=== PATIENT | female | born 1975 | race Caucasian/White ===

== ENCOUNTER → 2018-07-08 16:51 | Outpatient (CLI) | payer OTHER, SELFPAY ==
[2018-07-11 13:29] LABS: HPV Reflexed? NOT INDICATED
== END ==
PROVIDERS: Visit Provider Obstetrics & Gynecology
DX: Z12.4 Encounter for screening for malignant neoplasm of cervix (principal)
CPT/HCPCS: 88175; G0145

== ENCOUNTER → 2018-08-21 10:18 | Outpatient (CLI) | payer OTHER, SELFPAY ==
--- NOTE | 2018-08-21 10:20 | BI_ITS ---
MAMMOGRAPHY - BILATERAL SCREENING REASON FOR EXAM: Female, 42 years old. Routine annual screening examination. PERTINENT HISTORY: Non-contributory. TECHNIQUE: Digital bilateral breast rudy (3D mammographic acquisition) in the CC and MLO projections. 2-D mediolateral oblique (MLO) and craniocaudad (CC) views of both breasts were obtained. CAD: Full Field Digital Mammography with Computer Added Detection was performed. COMPARISON: Comparison is made with prior examination dated August 13, 2017. FINDINGS: Breast Composition: There are scattered areas of fibroglandular density. There are no dominant masses or suspicious calcifications. Stable benign-appearing bilateral axillary lymph nodes. No other significant abnormalities are identified. There has been no significant change since the prior study. BI/SCREENING MAMM (CAD), BILAT IMPRESSION: Stable bilateral screening mammogram. Yearly follow-up mammogram recommended. (A) ASSESSMENT CATEGORY: BIRADS Category 2: Benign. A letter regarding these results will be sent to the patient by the facility within 30 days. Approximately 10% of breast cancers are not detected by mammography. A normal mammogram should not delay biopsy of a clinically suspicious abnormality. [id number] Electronically Signed: Fadi Moise MD at 12:30 EST Tel [phone], Service support ,
--- OUTSIDE RECORDS SUMMARY | 2018-10-16 18:40 | XMS RPT_ITS ---
:1975 Author Organization [facility] Care Team Providers Name Role Phone Zac Thao Attending Unavailable Zac Thao Attending Unavailable Hong Ureña Primary Care Unavailable PROBLEMS PROBLEMS DATE TYPE CONDITION / CODE ATTENDING STATUS SOURCE 07/11/2018 Unknown Z12.4 - Zac Thao Active [employer] Encounter for Community screening for Hospital malignant Repository neoplasm of cervix / Z12.4(ICD-10) PROCEDURES PROCEDURES No Procedure Records FoundRESULTS RESULTS SCREENING MAMM (CAD), Observed: 08/21/2018 Status: F Source: [place] BILAT 10:20 AM [facility] H[facility]PITAL REPOSITORY [facility] Imaging Services [address] [place] [address] SCREENING MAMM (CAD), BILAT MR#: [id number] Acct: [id number] Name: TRUDY MULLIGAN Rep #: [id number] : 1975 F 42 From: Fadi Moise MD PCP: Hong Ureña MD Status: REG CLI Study: SCREENING MAMM (CAD), BILAT Date of Exam: 08/21/18 Exam# [id number] Ordering Dr: Zac Thao MD MAMMOGRAPHY - BILATERAL SCREENING REASON FOR EXAM: Female, 42 years old. Routine annual screening examination. PERTINENT HISTORY: Non-contributory. TECHNIQUE: Digital bilateral breast rudy (3D mammographic acquisition) in the CC and MLO projections. 2-D mediolateral oblique (MLO) and craniocaudad (CC) views of both breasts were obtained. CAD: Full Field Digital Mammography with Computer Added Detection was performed. COMPARISON: Comparison is made with prior examination dated August 13, 2017. FINDINGS: Breast Composition: There are scattered areas of fibroglandular density. There are no dominant masses or suspicious calcifications. Stable benign-appearing bilateral axillary lymph nodes. No other significant abnormalities are identified. There has been no significant change since the prior study. BI/SCREENING MAMM (CAD), BILAT IMPRESSION: Stable bilateral screening mammogram. Yearly follow-up mammogram recommended. (A) ASSESSMENT CATEGORY: BIRADS Category 2: Benign. A letter regarding these results will be sent to the patient by the facility within 30 days. Approximately 10% of breast cancers are not detected by mammography. A normal mammogram should not delay biopsy of a clinically suspicious abnormality. [id number] Electronically Signed: Fadi Moise MD at 12:30 EST Tel [phone], Service support , CC: Zac Thao MD; Hong Ureña MD Health And Nutrition Specialist: Signed PAP IG W/REFLEX HR Collected: 07/08/2018 Status: F Source: [place] HPV APTIMA 3:00 PM [facility] REPOSITORY Order Comment: CYTOLOGY INFORMATION: - CLINICAL INFORMATION: - DATE LMP/MENOPAUSE: 06/18/18 LMP - COLLECTION VIAL: Thin Prep Vial - RN PACU SOURCE: CERVICAL/ENDOCERVICAL - COLLECTION TECHNIQUE: BRUSH/SPATULA Specimen Comment: [id number] Specimen Comment: Source.............Cervix;Endocervix Specimen Comment: LMP / Prev Treat...[id number]=[id number] Specimen Comment: No. of containers..01 ThinPrep Vial TYPE CODE TESTS RESULT OUT OF RANGE REFERENCE UNITS LAB L7400.0800 . Normal DIAGN Comment Result Comment: NEGATIVE FOR INTRAEPITHELIAL LESION AND MALIGNANCY. LAB L7400.0900 . Normal ADEQ Comment Result Comment: Satisfactory for evaluation. Endocervical and/or squamous metaplastic cells (endocervical component) are present. LAB L7400.1400 . Normal PERFORM Comment Result Comment: Felicia Rg, Cnc Router Operator (ASCP) LAB L7400.2575 . Normal TEST METHOD Comment Result Comment: This liquid based ThinPrep(R) pap test was screened with the use of an image guided system. LAB L7400.2600 . Normal . COMM LAB L7400.2700 . Normal PAPSMR Comment Result Comment: The Pap smear is a screening test designed to aid in the detection of premalignant and malignant conditions of the uterine cervix. It is not a diagnostic procedure and should not be used as the sole means of detecting cervical cancer. Both false-positive and false-negative reports do occur. LAB L7400.2800 . Normal HPV RFLX Comment Result Comment: The HPV DNA reflex criteria were not met with this specimen result therefore, no HPV testing was performed. Performed at: - [facility] [id number] Plaster Applicator: Julisa Birch MD, Phone: [phone] Performed By: #### L7400.0357 #### [facility] (refer to report for specific site) refer to report for address and phone number PROGRESS Observed: 07/08/2018 Status: COMPLETED Source: [place] 1:[address] [facility] REPOSITORY O ID: [id number] Author: Renetta Churchill Service: (none) Author Type: Nurse Practitioner Type: Progress Notes Filed: 07/08/2018 1:38 PM Note Text: Subjective HPI Pt presents with c/o itchy rash to bilateral arms, trunk and neck x 2 weeks after exposure to poison russ viri while 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 Has been taking benadryl and using calamine lotion with minimal improvement. Has also tried poison russ spray. Denies fever, chills, myalgias. Review of Systems Constitutional: Negative for chills and fever. Skin: Positive for itching and rash. Objective Physical Exam Constitutional: She is oriented to person, place, and time and well-developed, well-nourished, and in no distress. No distress. Neurological: She is alert and oriented to person, place, and time. Skin: Skin is warm and dry. Rash noted. Rash is maculopapular and vesicular. She is not diaphoretic. Vesicular and maculopapular lesions in patches to bilateral forearms and scattered to areas noted. No drainage to any lesions. No signs of secondary infection noted. BP 128/84 Pulse (!) 122 Temp 37.1 ?C (98.7 ?F) (Tympanic) Resp 18 Wt 88.9 kg (196 lb) BMI 31.16 kg/m? .Patient presents with: poison russ: x 2 weeks PAST MEDICAL HISTORY Diagnosis Date - Psoriasis of scalp Dr. Hernandez PAST SURGICAL HISTORY Procedure Laterality Date - NONE ALLERGIES Patient has no known allergies. MEDICATIONS predniSONE (DELTASONE) 10 mg tablet Take 4 tabs daily for 3 days, then 2 tabs daily for 3 days, then 1 tab daily for 3 days with food. triamcinolone acetonide (KENALOG) 0.1 % ointment Apply 1 application to affected area twice daily for 7 days. FAMILY HISTORY Problem Relation Age of Onset - Psoriasis Father - other (IBS [Other]) Mother - Cancer Maternal Aunt brain cancer Social History Substance Use Topics - Smoking status: Never Smoker - Smokeless tobacco: Never Used - Alcohol use 1.5 oz/week 1 Glasses of Wine (5oz) per week ASSESSMENT/PLAN: 1. Contact dermatitis due to plants, except food, unspecified contact dermatitis type - ICD9: 692.6, ICD10: L25.5 - discussed skin care of rash - follow up if symptoms persist or worsen. - PREDNISONE 10 MG TABLET - TRIAMCINOLONE ACETONIDE 0.1 % TOPICAL OINTMENT The patient is instructed to return or seek emergency treatment if symptoms become worse or with any acute change in condition. The patient verbalizes understanding and is in agreement with plan of care. Renetta Churchill CNP CNOV Observed: 07/08/2018 Status: COMPLETED Source: [place] 1:15 PM [facility] REPOSITORY Office Visit (WSTR) TRUDY MULLIGAN ([id number]) 1975 F Date Time Provider Department 07/08/18 1:15 PM RENETTA CHURCHILL [facility] During your visit today, we recorded the following information about you: Temperature Pulse Respiration Blood pressure 98.7 degrees 122/minute 18/minute 128/84 Weight 88.9 kg Renetta Churchill APRN.PERFORMANCE ANALYST 07/08/2018 1:38 PM Signed Subjective HPI Pt presents with c/o itchy rash to bilateral arms, trunk and neck x 2 weeks after exposure to poison russ viri while 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 Has been taking benadryl and using calamine lotion with minimal improvement. Has also tried poison russ spray. Denies fever, chills, myalgias. Review of Systems Constitutional: Negative for chills and fever. Skin: Positive for itching and rash. Objective Physical Exam Constitutional: She is oriented to person, place, and time and well-developed, well-nourished, and in no distress. No distress. Neurological: She is alert and oriented to person, place, and time. Skin: Skin is warm and dry. Rash noted. Rash is maculopapular and vesicular. She is not diaphoretic. Vesicular and maculopapular lesions in patches to bilateral forearms and scattered to areas noted. No drainage to any lesions. No signs of secondary infection noted. BP 128/84 Pulse (!) 122 Temp 37.1 ?C (98.7 ?F) (Tympanic) Resp 18 Wt 88.9 kg (196 lb) BMI 31.16 kg/m? .Patient presents with: poison russ: x 2 weeks PAST MEDICAL HISTORY Diagnosis Date - Psoriasis of scalp Dr. Hernandez PAST SURGICAL HISTORY Procedure Laterality Date - NONE ALLERGIES Patient has no known allergies. MEDICATIONS predniSONE (DELTASONE) 10 mg tablet Take 4 tabs daily for 3 days, then 2 tabs daily for 3 days, then 1 tab daily for 3 days with food. triamcinolone acetonide (KENALOG) 0.1 % ointment Apply 1 application to affected area twice daily for 7 days. FAMILY HISTORY Problem Relation Age of Onset - Psoriasis Father - other (IBS [Other]) Mother - Cancer Maternal Aunt brain cancer Social History Substance Use Topics - Smoking status: Never Smoker - Smokeless tobacco: Never Used - Alcohol use 1.5 oz/week 1 Glasses of Wine (5oz) per week ASSESSMENT/PLAN: 1. Contact dermatitis due to plants, except food, unspecified contact dermatitis type - ICD9: 692.6, ICD10: L25.5 - discussed skin care of rash - follow up if symptoms persist or worsen. - PREDNISONE 10 MG TABLET - TRIAMCINOLONE ACETONIDE 0.1 % TOPICAL OINTMENT The patient is instructed to return or seek emergency treatment if symptoms become worse or with any acute change in condition. The patient verbalizes understanding and is in agreement with plan of care. Renetta Churchill CNP Referring Provider: SELF [200] Allergies As of Date: 07/08/2018 (No Known Allergies) Date Reviewed: 07/08/2018 Reviewed by: Pamella Jain LPN - Fully Assessed Reason for Visit: poison russ [Other] Cmt: x 2 weeks Primary Visit Diagnosis:Contact dermatitis due to plants, except food, unspecified contact dermatitis type [L25.5] Order(s):predniSONE (DELTASONE) 10 mg tabletTake 4 tabs daily for 3 days, then 2 tabs daily for 3 days, then 1 tab daily for 3 days with food.Disp: 21 tabletRfl: 0 triamcinolone acetonide (KENALOG) 0.1 % ointmentApply 1 application to affected area twice daily for 7 days.Disp: 80 gRfl: 0 Prescriptions as of 07/08/2018 Sig: PREDNISONE 10 MG TABLET Take 4 tabs daily for 3 days,* TRIAMCINOLONE ACETONIDE 0.1 %* Apply 1 application to affect* Problem List As Of Date 07/08/2018 Noted Resolved Psoriasis of scalp [L40.9] INVALID FOR* Prescriptions ordered this encounter Disp Refills Start End PREDNISONE 10 MG TABLET 21 t* 0 07/08/2018 07/17/2018 Sig: Take 4 tabs daily for 3 days, then 2 tabs daily for 3 days, then 1 tab daily for 3 days with food. TRIAMCINOLONE ACETONIDE 0.1 % TOPICA* 80 g 0 07/08/2018 07/15/2018 Route: TOPICAL Sig: Apply 1 application to affected area twice daily for 7 days. Encounter Status:Closed by RENETTA CHURCHILL CNP on 07/08/18 ALLERGIES ALLERGIES DATE TYPE / CODE NAME / CODE REACTION SEVERITY SOURCE 06/24/2015 Drug No Known Unknown [employer] [facility] Allergy/416 Allergies/I71614 Hospital 951532(SNOM 0388(RXNORM) Repository ED CT) Drug NO KNOWN [facility] Class/27138 ALLERGIES [place] 1003(SNOMED Repository CT) ENCOUNTERS ENCOUNTERS ADMIT/DISCHARGE ACCOUNT ADMITTING ENCOUNTER LOCATION SOURCE NUMBER CLASS 08/21/2018 [id number] [facility] ing:OPBI Repository 07/08/2018 [id number] [facility] ing:LABSPEC Repository 07/08/2018/07/10/20 [id number] Ambulatory [address] Repository PAYERS PAYERS ENCOUNTER GUARANTOR PAYER SUBSCRIBER SOURCE 08/21/[address] Primary TRUDY A [employer] [id number] WILE Insurance:AETNAPolicy TERRELLDOB: [place], [place] Number: [id number] Hospital [address]Wdd: 330 [id number] Repository [phone] () Date:[id number] [facility] [place] [address]BM: 08/21/2018 Secondary NOT GIVENUNK [employer] Insurance:SELF PAY [facility] Number: Effective Repository Date:2018-07-09 07/08/[address] Primary TRUDY A [employer] [id number] WILE Insurance:AETNAPolicy TERRELLDOB: [place], [place] Number: [id number] Hospital [address]Tvh: 330 [id number] Repository [phone] () Date:[id number] [address], [place] [address]OU: 07/08/2018 Secondary NOT GIVENUNK [employer] Insurance:SELF PAY [facility] Number: Effective Repository Date:2018-07-08
== END ==
PROVIDERS: Family Provider Internal Medicine; PCP Internal Medicine; Visit Provider Obstetrics & Gynecology
DX: Z12.31 Encounter for screening mammogram for malignant neoplasm of breast (principal)
CPT/HCPCS: 77063; 77067

== ENCOUNTER → 2019-06-25 13:10 | Outpatient (REF) | payer OTHER, SELFPAY ==
[2019-06-28 06:07] LABS: HEPATITIS B SURFACE AG Negative (Negative); Hepatitis A AB, Total Negative (Negative); Hepatitis A IgM Antibody Negative (Negative); Hepatitis B Core AB IgM Negative (Negative); Hepatitis B Core Ab Total Negative (Negative); Hepatitis C Ab <0.1 s/co ratio (0.0-0.9); QNTFERON TB Mitogen Value > 10.00 IU/mL (.); QNTFERON TB Nil Value 0.02 IU/mL (.); QNTFERON TB1+ Ag Value 0.03 IU/mL (.); QNTFERON TB2+ Ag Value 0.04 IU/mL (.)
[2019-06-30 13:55] LABS: Hep B Surface Antibodies Reactive (.)
[2019-06-30 13:56] LABS: QNTIFERON TB Positive Criteria Negative (Negative)
== END ==
LOC: OLS.WCEH 13:10
DX: R69 Illness, unspecified (principal)
CPT/HCPCS: 86480; 86704; 86705; 86706; 86708; 86709; 86803; 87340

== ENCOUNTER → 2019-08-26 10:19 | Outpatient (CLI) | payer OTHER, SELFPAY ==
--- NOTE | 2019-08-26 10:21 | BI_ITS ---
MAMMOGRAPHY - BILATERAL SCREENING REASON FOR EXAM: Female, 43 years old. Routine annual screening examination. PERTINENT HISTORY: Non-contributory. TECHNIQUE: Digital bilateral breast kristen (3D mammographic acquisition) in the CC and MLO projections. 2-D mediolateral oblique (MLO) and craniocaudad (CC) views of both breasts were obtained. CAD: Full Field Digital Mammography with Computer Added Detection was performed. COMPARISON: Comparison is made with prior study dated August 21, 2018 and August 13, 2017. FINDINGS: Breast Composition: There are scattered areas of fibroglandular density. There are no dominant masses or suspicious calcifications. Stable small benign-appearing bilateral axillary lymph nodes. No other significant abnormalities are identified. There has been no significant change since the prior study. BI/SCREEN MAMM (CAD) W/KRISTEN BILAT IMPRESSION: Stable bilateral screening mammogram. Yearly follow-up mammogram recommended. (A) ASSESSMENT CATEGORY: BIRADS Category 2: Benign. A letter regarding these results will be sent to the patient by the facility within 30 days. Approximately 10% of breast cancers are not detected by mammography. A normal mammogram should not delay biopsy of a clinically suspicious abnormality. [id number] Electronically Signed: Fadi Moise, at 11:25 EST , Service support ,
== END ==
PROVIDERS: Family Provider Internal Medicine; PCP Internal Medicine; Referring Provider Obstetrics & Gynecology; Visit Provider Obstetrics & Gynecology
DX: Z12.31 Encounter for screening mammogram for malignant neoplasm of breast (principal)
CPT/HCPCS: 77063; 77067

== ENCOUNTER → 2019-12-01 14:08 | Outpatient (CLI) | payer OTHER, SELFPAY ==
[2019-12-01 15:43] LABS: Absolute Lymphocyte Count 1.59 X10^3/uL (0.83-4.51); Absolute Neutrophil Count 4.4 X10^3/uL (2.0-7.7); Basophil# 0.02 X10^3/uL; Basophil% 0.3 % (0-1); Eosinophil# 0.05 X10^3/uL; Eosinophils% 0.8 % (0-5); Hematocrit 39.5 % (37-47); Hemoglobin 12.6 g/dL (12.0-15.0); Lymphocyte # 1.59 X10^3/ul (4.0); Lymphocyte % 25.2 % (19-41); Mean Corp Hgb Conc 31.9 g/dL (32-36); Mean Platelet Vol. 10.6 fl (6.2-12.0); Monocyte# 0.27 X10^3/uL; Monocyte% 4.3 % (0-10); NRBC Flagged by Analyzer 0 % (0-5); Neutrophil # 4.35 X10^3/uL (2.7-7.7); Neutrophil % 69.1 % (47-70); Platelet Count 247 K/mm3 (150-450); RBC Distribution Width CV 12.5 % (11.6-14.6); RBC Distribution Width SD 41.9 fl (35.1-43.9); Red Blood Count 4.34 M/mm3 (4.2-5.4); White Blood Count 6.3 K/mm3 (4.4-11.0)
[2019-12-01 16:19] LABS: Erythrocyte Sedimentation Rate 7 mm/hr (0-20)
[2019-12-01 16:22] LABS: ALB/GLOB Ratio 1.1 RATIO (0.9-2.4); AST(SGOT) 13 U/L (15-37); Alanine Aminotransfer ALT/SGPT 22 U/L (13-56); Alkaline Phosphatase 49 U/L (45-117); Anion Gap 6 (5-15); BUN 7 mg/dL (7-18); BUN/Creat Ratio 7.2 RATIO (10-20); CRP < 2.90 mg/L (0.0-3.0); Calcium,Total 8.8 mg/dL (8.5-10.1); Chloride 107 mmol/L (98-107); Creatinine, Serum 0.97 mg/dL (0.55-1.02); EST Glomerular Filtration Rate 67 mL/min (>60); Est Glom Filt Rate - Afr Amer 81 mL/min (>60); Globulin 3.5 g/dL (2.2-4.2); Glucose 88 mg/dL (74-106); Potassium 3.7 mmol/L (3.5-5.1); Protein, Total 7.5 g/dL (6.4-8.2); Rheumatoid Factor < 10.0 IU/mL (<15); Sodium Level 141 mmol/L (136-145)
[2019-12-03 17:05] LABS: ANTINUCLEAR ANTIBODIES DIRECT Negative (Negative)
[2019-12-05 11:52] LABS: CCP IgG Antibodies 83 units (0-19)
== END ==
PROVIDERS: PCP Internal Medicine; Referring Provider Internal Medicine Rheumatology; Visit Provider Internal Medicine Rheumatology
DX: L40.59 Other psoriatic arthropathy (principal); M18.0 Bilateral primary osteoarthritis of first carpometacarpal joints; Q66.70 Congenital pes cavus, unspecified foot; L40.8 Other psoriasis
CPT/HCPCS: 36415; 80053; 85025; 85652; 86038; 86140; 86200; 86431

== ENCOUNTER → 2020-05-19 09:44 | Outpatient (CLI) | payer OTHER, SELFPAY ==
[2020-05-22 08:08] LABS: QNTFERON TB Mitogen Value > 10.00 IU/mL (.); QNTFERON TB Nil Value 0.02 IU/mL (.); QNTFERON TB1+ Ag Value 0.03 IU/mL (.); QNTFERON TB2+ Ag Value 0.03 IU/mL (.)
[2020-05-22 14:38] LABS: QNTIFERON TB Positive Criteria Negative (Negative)
== END ==
PROVIDERS: PCP Internal Medicine; Referring Provider Physician Assistant Medical; Visit Provider Physician Assistant Medical
DX: L40.0 Psoriasis vulgaris (principal); Z79.899 Other long term (current) drug therapy; L40.59 Other psoriatic arthropathy
CPT/HCPCS: 36415; 86480

== ENCOUNTER → 2020-07-22 | Outpatient (CLI) | payer OTHER, SELFPAY ==
[2020-07-27 14:43] LABS: HPV Reflexed? NOT INDICATED
== END | disposition home or self-care (01) ==
LOC: LABSPEC 13:02
PROVIDERS: PCP Internal Medicine; Visit Provider Obstetrics & Gynecology
DX: Z12.4 Encounter for screening for malignant neoplasm of cervix (principal)
CPT/HCPCS: 88175; G0145

== ENCOUNTER → 2020-08-30 10:33 | Outpatient (CLI) | payer OTHER, SELFPAY ==
--- NOTE | 2020-08-30 10:35 | BI_ITS ---
MAMMOGRAPHY - BILATERAL SCREENING REASON FOR EXAM: Female, 44 years old. Routine annual screening examination. PERTINENT HISTORY: Non-contributory. TECHNIQUE: Digital bilateral breast kristen (3D mammographic acquisition) in the CC and MLO projections. 2-D mediolateral oblique (MLO) and craniocaudad (CC) views of both breasts were obtained. CAD: Full Field Digital Mammography with Computer Added Detection was performed. COMPARISON: Comparison is made with prior study dated 08/26/2019 and 08/21/2018. FINDINGS: Breast Composition: There are scattered areas of fibroglandular density. There are no dominant masses or suspicious calcifications. Stable benign-appearing bilateral axillary lymph nodes. No other significant abnormalities are identified. There has been no significant change since the prior study. BI/SCREEN MAMM (CAD) W/KRISTEN BILAT IMPRESSION: Stable bilateral screening mammogram. Yearly follow-up mammogram recommended. (A) ASSESSMENT CATEGORY: BIRADS Category 2: Benign. A letter regarding these results will be sent to the patient by the facility within 30 days. Approximately 10% of breast cancers are not detected by mammography. A normal mammogram should not delay biopsy of a clinically suspicious abnormality. [id number] Electronically Signed: Fadi Moise, at 11:37 EST , Service support ,
== END ==
PROVIDERS: PCP Internal Medicine; Referring Provider Obstetrics & Gynecology; Visit Provider Obstetrics & Gynecology
DX: Z12.31 Encounter for screening mammogram for malignant neoplasm of breast (principal)
CPT/HCPCS: 77063; 77067

== ENCOUNTER → 2021-05-10 09:30 | Outpatient (CLI) | payer OTHER, SELFPAY ==
[2021-05-17 04:08] LABS: QNTFERON TB Mitogen Value > 10.00 IU/mL (.); QNTFERON TB Nil Value 0.03 IU/mL (.); QNTFERON TB1+ Ag Value 0.04 IU/mL (.); QNTFERON TB2+ Ag Value 0.03 IU/mL (.)
[2021-05-17 08:06] LABS: QNTIFERON TB Positive Criteria Negative (Negative)
== END ==
PROVIDERS: PCP Internal Medicine; Referring Provider Physician Assistant Medical; Visit Provider Physician Assistant Medical
DX: L40.0 Psoriasis vulgaris (principal); Z79.899 Other long term (current) drug therapy; L40.59 Other psoriatic arthropathy; B07.8 Other viral warts
CPT/HCPCS: 36415; 86480

== ENCOUNTER → 2021-09-08 13:48 | Outpatient (CLI) | payer OTHER, SELFPAY ==
--- NOTE | 2021-09-08 13:49 | BI_ITS ---
MAMMOGRAPHY - BILATERAL SCREENING REASON FOR EXAM: Female, 46 years old. Routine annual screening examination. PERTINENT HISTORY: Non-contributory. TECHNIQUE: Digital bilateral breast kristen (3D mammographic acquisition) in the CC and MLO projections. 2-D mediolateral oblique (MLO) and craniocaudad (CC) views of both breasts were obtained. CAD: Full Field Digital Mammography with Computer Added Detection was performed. COMPARISON: Comparison is made with prior study of 08/30/2020 and 08/26/2019. FINDINGS: Breast Composition: There are scattered areas of fibroglandular density. There are no dominant masses or suspicious calcifications. Stable benign-appearing bilateral axillary lymph nodes. No other significant abnormalities are identified. There has been no significant change since the prior study. BI/SCRN MAMM (CAD)W/KRISTEN BILAT IMPRESSION: Stable bilateral screening mammogram. Yearly follow-up mammogram recommended. (A) ASSESSMENT CATEGORY: BIRADS Category 2: Benign. A letter regarding these results will be sent to the patient by the facility within 30 days. Approximately 10% of breast cancers are not detected by mammography. A normal mammogram should not delay biopsy of a clinically suspicious abnormality. [id number] Electronically Signed: Fadi Moise MD at 15:15 EST , Service support ,
== END ==
PROVIDERS: PCP Internal Medicine; Referring Provider Obstetrics & Gynecology; Visit Provider Obstetrics & Gynecology
DX: Z12.31 Encounter for screening mammogram for malignant neoplasm of breast (principal)
CPT/HCPCS: 77063; 77067

== ENCOUNTER → 2022-05-05 | Outpatient (CLI) | payer OTHER, SELFPAY ==
[2022-05-10 10:09] LABS: QNTFERON TB Mitogen Value > 10.00 IU/mL (.); QNTFERON TB Nil Value 0.11 IU/mL (.); QNTFERON TB1+ Ag Value 0.04 IU/mL (.); QNTFERON TB2+ Ag Value 0.04 IU/mL (.)
[2022-05-10 12:04] LABS: Hepatitis B Core Ab Total Negative (Negative); QNTIFERON TB Positive Criteria Negative (Negative)
== END | disposition home or self-care (01) ==
LOC: MTLAB 10:42
PROVIDERS: PCP Internal Medicine; Referring Provider Physician Assistant Medical; Visit Provider Physician Assistant Medical
DX: L40.0 Psoriasis vulgaris (principal); Z79.899 Other long term (current) drug therapy; B07.8 Other viral warts; L65.0 Telogen effluvium
CPT/HCPCS: 36415; 86480; 86704

== ENCOUNTER → 2022-09-29 | Outpatient (CLI) | payer OTHER, SELFPAY ==
[2022-10-03 16:18] LABS: HPV APTIMA, High Risk Negative (Negative)
== END | disposition home or self-care (01) ==
LOC: LABSPEC 10:56
PROVIDERS: PCP Internal Medicine; Visit Provider Obstetrics & Gynecology
DX: Z12.4 Encounter for screening for malignant neoplasm of cervix (principal)
CPT/HCPCS: 87624; 88175; G0145

== ENCOUNTER → 2022-10-25 | Outpatient (CLI) | payer OTHER, SELFPAY ==
--- NOTE | 2022-10-25 08:29 | BI_ITS ---
MAMMOGRAPHY - BILATERAL SCREENING REASON FOR EXAM: Female, 47 years old. Routine annual screening examination. PERTINENT HISTORY: Non-contributory. TECHNIQUE: Digital bilateral breast krsiten (3D mammographic acquisition) in the CC and MLO projections. 2-D mediolateral oblique (MLO) and craniocaudad (CC) views of both breasts were obtained. CAD: Full Field Digital Mammography with Computer Added Detection was performed. COMPARISON: Comparison is made with prior study dated 09/08/2021 and 08/30/2020. FINDINGS: Breast Composition: There are scattered areas of fibroglandular density. There is a 6.9 mm x 6.5 mm well-defined nodule in the upper lateral portion of the right breast. Correlation with ultrasound is recommended. Stable benign-appearing bilateral axillary lymph nodes. No other significant abnormalities are identified. BI/SCRN MAMM (CAD)W/KRISTEN BILAT IMPRESSION: 6.9 mm x 6.5 mm well-defined nodule in the upper lateral portion of the right breast as described. Correlation with ultrasound is recommended. ASSESSMENT CATEGORY: BIRADS Category 0: Incomplete. Need additional imaging evaluation. A letter regarding these results will be sent to the patient by the facility within 30 days. Approximately 10% of breast cancers are not detected by mammography. A normal mammogram should not delay biopsy of a clinically suspicious abnormality. [id number] Electronically Signed: Fadi Moise MD at 9:51 EST ,
== END | disposition home or self-care (01) ==
LOC: OPBI 08:27
PROVIDERS: PCP Internal Medicine; Referring Provider Obstetrics & Gynecology; Visit Provider Obstetrics & Gynecology
DX: Z12.31 Encounter for screening mammogram for malignant neoplasm of breast (principal); N63.10 Unspecified lump in the right breast, unspecified quadrant
CPT/HCPCS: 77063; 77067

== ENCOUNTER → 2022-10-26 | Outpatient (CLI) | payer OTHER, SELFPAY ==
--- NOTE | 2022-10-26 11:01 | US_ITS ---
STUDY: ULTRASOUND BREAST - RIGHT REASON FOR EXAM: Female, 47 years old. Abnormal screening mammogram. TECHNIQUE: Axial and longitudinal images of the RIGHT breast were performed with a high resolution ultrasound transducer. # OF IMAGES: 19 COMPARISON: Comparison is made with prior mammogram dated 10/25/2022. FINDINGS: RIGHT Breast: The mammographic abnormality corresponds to a 5 mm x 6 mm x 2 mm cyst at the 10 o''clock position of the breast at 2 cm from the nipple. US/Breast Limited Unilateral IMPRESSION: The mammographic abnormality corresponds to a 5 mm x 6 mm x 2 mm cyst at the 10 o''clock position of the breast at 2 cm from the nipple. ASSESSMENT CATEGORY: BIRADS Category 2: Benign. A letter regarding these results will be sent to the patient by the facility within 30 days. Electronically Signed: Fadi Moise MD at 12:26 EST ,
== END | disposition home or self-care (01) ==
PROVIDERS: PCP Internal Medicine; Referring Provider Obstetrics & Gynecology; Visit Provider Obstetrics & Gynecology
DX: R92.8 Other abnormal and inconclusive findings on diagnostic imaging of breast (principal)
CPT/HCPCS: 76642

== ENCOUNTER 2022-11-13 07:49 | Day surgery (SDC) | payer OTHER, SELFPAY ==
[2022-11-07 11:10] LABS: Hematocrit 34.9 % (37-47); Hemoglobin 11.1 g/dL (12.0-15.0); Mean Corp Hgb Conc 31.8 g/dL (32-36); Mean Corpuscular Volume 87.9 fL (81-99); Mean Platelet Vol. 10.1 fl (6.2-12.0); Platelet Count 248 K/mm3 (150-450); RBC Distribution Width CV 14.2 % (11.6-14.6); RBC Distribution Width SD 45.2 fl (35.1-43.9); Red Blood Count 3.97 M/mm3 (4.2-5.4)
[2022-11-13] VITALS (9 sets, daily range): BP systolic 104–150; BP diastolic 89–105; PULSE 61–98; RESP 16; TEMP 36.2–36.7; O2SAT 94–100; BMI 32.8
[2022-11-13 08:21] LABS: Internal QC Validated? YES +Cl - CLEAR BKGD; Pregnancy, Urine Negative Negative
[2022-11-13] MEDS: Lactated Ringers 1,000 ML 15 ML IV (08:26)
--- NOTE | 2022-11-13 09:25 | OV_PTH ---
PATIENT: TRUDY MULLIGAN LOC: [facility] U#:[id number] AGE/SX: 47/F ROOM: RE11/13/[address]: Dr. Woodrow Bowling MD : 1975 BED: DIS: 11/13/2022 SPEC #: [id number] RECD: 11/13/22 11:24 STATUS: MAIKOL MARQUITAMinerva #: [id number] DIONISIO: 11/13/22 09:[address]: Woodrow Bowling DEPT: SURGICAL PATHOLOGY RECD BY: Willa Moore ENTERED: 11/13/22 11:56 SP TYPE: OVARY OTHR DR: Dr. Hong Ureña MD Tissues: Ovary, NOS Procedures: Surgery Specimen Level IV HEADER OPERATION: Laparoscopic right oophorectomy, bilateral salpingectomy PRE-OP DIAGNOSIS: Pelvic pain TISSUE SUBMITTED: Right ovary, bilateral fallopian tubes MICROSCOPIC DIAGNOSIS Right ovary and bilateral fallopian tubes, bilateral salpingectomy and right oophorectomy: Bilateral fallopian tubes - no pathologic diagnosis. Right ovary - no pathologic diagnosis. JORGE:rogelio 11/14/2022 MICROSCOPIC DESCRIPTION Slides are reviewed. GROSS DESCRIPTION Received in fixative is one container labeled with the patient's name and designated right ovary and bilateral fallopian tubes. The specimen consists of a pink-wakefield ovary measuring 3.0 x 2.2 x 1.1 cm. Serial sections do not reveal mass lesions. The right fallopian tube measures 6.0 cm in length and 0.8 cm in average diameter. No tubo-ovarian adhesions are identified. The left fallopian tube is similar in appearance and measures 5.5 cm in length and 0.9 cm in average diameter. Both fallopian tubes have normal fimbrial ends. [employer] Batcher sections are submitted in three cassettes as follows: 1 - right ovary, 2 - right fallopian tube, 3 - left fallopian tube. / AM:rogelio 11/13/2022 TC:4 CPT: 43386 x2
--- NOTE | 2022-11-13 09:25 | PCM.HP.BLA ---
History and Physical Date of Admission: 11/13/22 Chief complaint: Pelvic pain History present illness: 47-year-old scheduled for diagnostic laparoscopy, right oophorectomy, bilateral salpingectomy for pelvic pain. No medical/seen. All questions answered and consent signed. Obstetric history: with a history of 3 vaginal deliveries Past medical history: Arthritis Medications: Humira How she is: No known drug allergies Past surgical history: [place] teeth extraction Social history: Denies smoking, alcohol use, drug use Family history: Denies history DVT or PE Review of systems: Besides above pertinent positives a full review of systems was performed and found to be negative Physical exam: Vitals: Blood pressure 150/105 pulse 98 respiratory rate 16 temperature 98.1 ?F SPO2 100% on room air General: Normal appearing no acute distress HEENT: Normocephalic/atraumatic no cervical lymphadenopathy Cardiac/respiratory: No use of accessory muscles, nonlabored breathing Abdomen: Soft, nontender, nondistended Extremities: No peripheral edema normal peripheral pulses Psych: Normal affect, meaner nonpressured speech Labs: Urine test negative Assessment and plan: 47-year-old scheduled for diagnostic laparoscopy, right oophorectomy, bilateral salpingectomy for pelvic pain. Patient understands the risk of the procedure include but are not limited to visceral or vascular injury, prolonged hospitalization, blood loss need for transfusion, reoperation. Patient stated understanding and wished to proceed. All questions were answered and consent was signed
--- NOTE | 2022-11-13 10:38 | DCINST_ITS ---
Discharge Instructions Diet Discharge Diet: No restrictions Activity Discharge Activity: Return to Normal Activity, May Drive, May Shower and - (No tub baths for 2-week) May resume sexual activity in: 4-6 weeks Lifting Restrictions: No lifting over 25 pounds for 2 to 3 weeks Dressing / Incision Call your doctor if your incision/area has: Continuous Slow Oozing and Foul Smelling Discharge Call your doctor if you observe: Fever of 101 or Higher, Shortness of breath and Chest pain Follow Up Care Please Follow Up With: Woodrow Bowling MD When: 2 weeks postoperatively Test Results: Test results from this visit will be discussed in further detail at your follow- up appointment, if applicable. Discharge Plan Admission Attending Provider: Woodrow Bowling Primary Care Provider: Hong Ureña Discharge Orders/Prescriptions Prescriptions: No Action Humira 20 mg/0.4 mL Syringe Kit 20 mg SUBCUT .Q2WE Rx Instructions: inject one - 40 mg/0.4 mL syringe every 2 weeks Referrals / Follow Up: Hong Ureña MD [Primary Care Provider] - Disposition Disposition (needs filled in before D/C Order can be placed): Home, Self Care
--- NOTE | 2022-11-13 10:39 | OP.PCM_ITS ---
Report of Operation Date of Procedure: 11/13/22 Pre-Operative Diagnosis: Pelvic pain Post-Operative Diagnosis: Pelvic pain, leiomyoma Surgery/Procedure Performed:: Diagnostic laparoscopy, right salpingo- oophorectomy, left salpingectomy Description of Surgical Findings:: Surgeon: Woodrow Bowling MD Anesthesia: General EBL: 25 cc Urine output: 600 cc IV fluids: 800 cc Complications: None Specimen: Right fallopian tube, right ovary, left fallopian tube Findings: Large anterior fundal fibroid approximately 7 to 8 cm in size. Large posterior fibroid approximately 5 to 6 cm in size. In all uterus fills pelvis pelvis. Very limited views in posterior cul-de-sac. Bilateral ureters noted. Consent: Patient with pelvic pain elects for diagnostic laparoscopy right salpingo- oophorectomy, left salpingectomy. Patient understands the risk of the procedure include but are not limited to visceral or vascular injury, prolonged hospitalization, blood loss and need for transfusion, reoperation. Patient state understanding and wished to proceed all questions were answered and consent was signed. Procedure: Patient was brought back to the OR where general anesthesia was found to be adequate. Patient was prepared and draped in a dorsolithotomy position with yellowfin stirrups. A weighted speculum was placed in the posterior aspect of vagina and cervical dilators were used to dilate the cervix. Uterine manipulator was placed. Varies needle was inserted at the umbilicus, water safety test was passed, abdomen was insufflated. 5 mm supraumbilical midline incision was made, 5 mm trocar was inserted under direct visualization. Lapar oscope was inserted and above findings were noted. Left lower quadrant 5 mm trocar was inserted under direct visualization. Right lower quadrant 8 mm trocar was inserted under direct visualization. Using an atraumatic grasper and a LigaSure device the left fallopian tube was identified to the fimbria a, the mesosalpinx was cut and cauterized with LigaSure device. The fallopian tube was transected near the cornua and removed from abdominal cavity, sent to pathology. Right lower quadrant 8 mm trocar was removed and 10 mm trocar was inserted under direct visualization. Using atraumatic grasper and LigaSure device, bilateral ureters visualized and out of the operative field, right IP ligament was cut and cauterized with LigaSure device, right utero-ovarian ligament was cut and cauterized with LigaSure device, right fallopian tube was transected at the cornua. Right ovary and right fallopian tube removed from abdominal cavity with Endo Catch bag and sent to pathology intact. Good hemostasis was noted at operative sites. 10 mm trocar was removed under direct visualization. Kvng Roman was inserted and fascia of 10 mm trocar site was closed using Vicryl suture. Remaining trocars were removed under direct visualization abdomen was desufflated. Good hemostasis was noted. Trocar sites skin was closed in a subcuticular fashion. Good hemostasis was noted. All counts were correct x2. Patient tolerated procedure well and was brought to recovery in stable condition.
[2022-11-13] MEDS: Ketorolac 30 MG/ML Syringe IV (11:43)
[2022-11-13] MEDS: Acetaminophen 500 MG Tablet 1000 MG PO (12:00)
[2022-11-13] MEDS: oxyCODONE 5 MG Tablet PO (13:14)
== END 2022-11-13 14:16 | disposition home or self-care (01) ==
LOC: SDC 07:54 → AC 07:55
PROVIDERS: Anesthesiology; PCP Internal Medicine; Referring Provider Obstetrics & Gynecology; Visit Provider Obstetrics & Gynecology
PROC: (CPT 58661; principal; 2022-11-13 09:10)
DX: R10.2 Pelvic and perineal pain (principal); L40.50 Arthropathic psoriasis, unspecified; D25.9 Leiomyoma of uterus, unspecified; Z79.899 Other long term (current) drug therapy
CPT/HCPCS: 58661; 00840; 81025; 85027; 86850; 86900; 86901; 88305; J7120; J0330; J2405

== ENCOUNTER → 2023-03-23 | Outpatient (CLI) | payer OTHER, SELFPAY ==
[2023-03-26 12:08] LABS: QNTFERON TB Mitogen Value > 10.00 IU/mL (.); QNTFERON TB Nil Value 0 IU/mL (.); QNTFERON TB1+ Ag Value 0 IU/mL (.); QNTFERON TB2+ Ag Value 0 IU/mL (.); QNTIFERON TB Positive Criteria Negative (Negative)
== END | disposition home or self-care (01) ==
LOC: MTLAB 15:02
PROVIDERS: PCP Internal Medicine; Referring Provider Physician Assistant Medical; Visit Provider Physician Assistant Medical
DX: D22.71 Melanocytic nevi of right lower limb, including hip (principal); D22.5 Melanocytic nevi of trunk; D36.14 Benign neoplasm of peripheral nerves and autonomic nervous system of thorax; L40.0 Psoriasis vulgaris; Z79.899 Other long term (current) drug therapy
CPT/HCPCS: 36415; 86480

== ENCOUNTER → 2023-06-11 | Outpatient (CLI) | payer OTHER, SELFPAY ==
[2023-06-12 05:07] LABS: Hepatitis B Core Ab Total Negative (Negative)
== END | disposition home or self-care (01) ==
PROVIDERS: PCP Internal Medicine; Referring Provider Physician Assistant Medical; Visit Provider Physician Assistant Medical
DX: L40.0 Psoriasis vulgaris (principal)
CPT/HCPCS: 36415; 86704

== ENCOUNTER → 2024-02-08 | Outpatient (CLI) | payer OTHER, SELFPAY ==
[2024-02-08 17:41] LABS: Absolute Lymphocyte Count 2.03 X10^3/uL (0.83-4.51); Absolute Neutrophil Count 5.6 X10^3/uL (2.0-7.7); Basophil# 0.04 X10^3/uL; Basophil% 0.5 % (0-1); Eosinophil# 0.06 X10^3/uL; Eosinophils% 0.7 % (0-5); Hematocrit 37.1 % (37-47); Hemoglobin 12.1 g/dL (12.0-15.0); Lymphocyte # 2.03 X10^3/ul (0.83-4.51); Lymphocyte % 24.6 % (19-41); Mean Corp Hgb Conc 32.6 g/dL (32-36); Mean Corpuscular Hgb 30.4 pg (27.0-32.0); Mean Corpuscular Volume 93.2 fL (81-99); Mean Platelet Vol. 10.4 fl (6.2-12.0); Monocyte# 0.47 X10^3/uL; Monocyte% 5.7 % (0-10); NRBC Flagged by Analyzer 0 % (0-5); Neutrophil # 5.63 X10^3/uL (2.7-7.7); Neutrophil % 68.3 % (47-70); Platelet Count 212 K/mm3 (150-450); RBC Distribution Width CV 12.7 % (11.6-14.6); RBC Distribution Width SD 43.8 fl (35.1-43.9); Red Blood Count 3.98 M/mm3 (4.2-5.4); White Blood Count 8.3 K/mm3 (4.4-11.0)
[2024-02-08 17:53] LABS: ALB/GLOB Ratio 1.3 RATIO (0.9-2.4); AST(SGOT) 12 U/L (15-37); Alanine Aminotransfer ALT/SGPT 19 U/L (13-56); Albumin, Serum 3.9 g/dL (3.2-5.0); Alkaline Phosphatase 42 U/L (45-117); Anion Gap 5 (5-15); BUN 9 mg/dL (7-18); BUN/Creat Ratio 12.4 RATIO (10-20); Calcium,Total 9.5 mg/dL (8.5-10.1); Chloride 108 mmol/L (98-107); Creatinine, Serum 0.73 mg/dL (0.55-1.02); EST Glomerular Filtration Rate 92 mL/min (>60); Est Glom Filt Rate - Afr Amer 111 mL/min (>60); Glucose 100 mg/dL (74-106); Potassium 3.7 mmol/L (3.5-5.1); Protein, Total 6.9 g/dL (6.4-8.2); Sodium Level 140 mmol/L (136-145)
[2024-02-12 21:07] LABS: QNTFERON TB Mitogen Value > 10.00 IU/mL (.); QNTFERON TB Nil Value 0.01 IU/mL (.); QNTFERON TB1+ Ag Value 0.04 IU/mL (.); QNTFERON TB2+ Ag Value 0.04 IU/mL (.); QNTIFERON TB Positive Criteria Negative (Negative)
== END | disposition home or self-care (01) ==
LOC: MTLAB 15:39
PROVIDERS: PCP Internal Medicine; Referring Provider Physician Assistant Medical; Visit Provider Physician Assistant Medical
DX: L40.0 Psoriasis vulgaris (principal); Z79.899 Other long term (current) drug therapy; L72.8 Other follicular cysts of the skin and subcutaneous tissue
CPT/HCPCS: 36415; 80053; 85025; 86480

== ENCOUNTER → 2025-01-20 | Outpatient (CLI) | payer OTHER, SELFPAY ==
[2025-01-22 16:08] LABS: QNTFERON TB Mitogen Value > 10.00 IU/mL (.); QNTFERON TB Nil Value 0.03 IU/mL (.); QNTFERON TB1+ Ag Value 0.05 IU/mL (.); QNTFERON TB2+ Ag Value 0.04 IU/mL (.); QNTIFERON TB Positive Criteria Negative (Negative)
== END | disposition home or self-care (01) ==
LOC: MTLAB 15:35
PROVIDERS: PCP Internal Medicine; Referring Provider Physician Assistant Medical; Visit Provider Physician Assistant Medical
DX: L40.0 Psoriasis vulgaris (principal); Z79.899 Other long term (current) drug therapy; L72.0 Epidermal cyst
CPT/HCPCS: 36415; 86480